=== PATIENT | male | born 1980 | race Caucasian/White ===

== ENCOUNTER 2016-12-24 16:13 | Inpatient (IN) | payer MEDICAID, OTHER ==
[~2016-12-24] VITALS: Ht 175.3 cm; Wt 109.8 kg
[~2016-12-24 16:13] MED LIST: ARIP5TAB9 PO; ASEN5TAB6 SL; OMEP20 PO; PROZ10 PO
[2016-12-24 18:43] VITALS: BP 113/60
[2016-12-24] MEDS ORDERED: ZOLPIDEM TARTRATE 10 MG TABLET PO PRN (18:45)
[2016-12-24] MEDS ORDERED: LORazepam 2 MG TABLET PO PRN (18:45)
[2016-12-24] MEDS ORDERED: HALOPERIDOL 5 MG TABLET PO PRN (18:45)
[2016-12-24] MEDS ORDERED: INFLUENZA VIRUS VACCINE QVS 2016-17 (3YR+)/PF 60 MCG/0.5 ML SYRINGE IM ONE (19:00)
[2016-12-24 19:20] VITALS: BP 119/84
[2016-12-24 19:46] VITALS: BP 119/84
[2016-12-24] MEDS ORDERED: QUET200T PO (19:56)
[2016-12-24] MEDS ORDERED: VALA500T38 PO (19:56)
[2016-12-24] MEDS ORDERED: CLON2 PO (19:56)
[2016-12-25] MEDS ORDERED: PNEUMOCOCCAL VACCINE POLYVALENT 0.5 ML VIAL [PPSV23] IM ONE (01:45)
[2016-12-25] MEDS ORDERED: -PHARMACY VACCINE NOTE- MISC ONE ×2 (01:45)
[2016-12-25 04:47] VITALS: BP 124/92
[2016-12-25] MEDS ORDERED: IBUPROFEN 600 MG TABLET PO PRN (08:00)
[2016-12-25] MEDS ORDERED: CloNIDine HCL 0.1 MG TABLET PO PRN (08:00)
[2016-12-25] MEDS ORDERED: ACETAMINOPHEN 325 MG TABLET PO PRN (08:00)
[2016-12-25] MEDS ORDERED: BENZOCAINE/MENTHOL LOZENGE MM PRN (08:00)
[2016-12-25] MEDS ORDERED: PETROLATUM,WHITE 71 GM JELLY TP PRN (08:00)
[2016-12-25] MEDS ORDERED: ONDANSETRON HCL 4 MG TABLET PO PRN (08:00)
[2016-12-25] MEDS ORDERED: ALBUTEROL SULFATE HFA 90 MCG/PUFF 8 GM INHALER IH PRN (08:00)
[2016-12-25] MEDS ORDERED: MAGNESIUM HYDROXIDE SUSPENSION 30 ML UDCUP PO PRN (08:00)
[2016-12-25] MEDS ORDERED: BACITRACIN 28.4 GM OINTMENT TP PRN (08:00)
[2016-12-25] MEDS ORDERED: LOPERAMIDE HCL 2 MG CAPSULE PO PRN (08:00)
[2016-12-25] MEDS ORDERED: MAG HYDROX/AL HYDROX/SIMETH ES 30 ML SUSPENSION UDCUP PO PRN (08:00)
[2016-12-25 08:35] LABS: BASOPHILS % (AUTO) 0.4 % (0.0-2.0); EOSINOPHILS % (AUTO) 4.4 % (1.0-6.0); HEMATOCRIT 42.9 % (41-53); LYMPHOCYTES % (AUTO) 24.9 % (22.0-44.0); MEAN CORPUSCULAR HEMOGLOBIN 29.1 pg (26.0-34.0); MEAN CORPUSCULAR HGB CONC 32.6 G/dL (31.0-37.0); MEAN CORPUSCULAR VOLUME 89 fL (80-100); MONOCYTES # (AUTO) 0.6 K/uL (0.1-1.0); MONOCYTES % (AUTO) 7.5 % (2.0-9.0); NEUTROPHILS % (AUTO) 62.8 % (40.0-70.0); PLATELET COUNT (AUTO) 321 K/uL (150-450); RED CELL DISTRIBUTION WIDTH 16.1 % (11.5-14.5)
[2016-12-25 08:49] LABS: ALANINE AMINOTRANSFERASE 45 U/L (12-78); ALBUMIN 3.4 g/dL (3.4-5.0); ANION GAP 9 mmol/L (8-16); ASPARTATE AMINOTRANSFERASE 24 U/L (15-37); BILIRUBIN,TOTAL 0.3 mg/dL (0.1-1.0); CALCIUM, TOTAL 8.4 mg/dL (8.8-10.5); CARBON DIOXIDE 24 mmol/L (22-29); CHLORIDE 106 mmol/L (98-107); CREATININE 0.79 mg/dL (0.60-1.30); GLOMERULAR FILTR. RATE CALC > 60 mL/min (>60); POTASSIUM 4.4 mmol/L (3.5-5.1); SODIUM SERUM 139 mmol/L (136-145); TOTAL PROTEIN, SERUM 6.8 g/dL (6.4-8.2); UREA NITROGEN, BLOOD 10 mg/dL (7-18)
[2016-12-25 16:09] VITALS: BP 101/66
[2016-12-25] MEDS ORDERED: QUEtiapine FUMARATE 200 MG TABLET PO SCH (21:00)
[2016-12-26 04:56] VITALS: BP 110/61
[2016-12-26 08:00] VITALS: BP 121/82
== END 2016-12-26 13:37 | disposition home or self-care (01) | DRG 750 ==
LOC: B2S 18:42 → EDSTATUS 18:45
PROVIDERS: ADMIT Psychiatry & Neurology Psychiatry; ATTEND Psychiatry & Neurology Psychiatry
DX: F25.9 Schizoaffective disorder, unspecified (principal); E66.9 Obesity, unspecified; F10.10 Alcohol abuse, uncomplicated; F12.90 Cannabis use, unspecified, uncomplicated; J45.909 Unspecified asthma, uncomplicated; F17.210 Nicotine dependence, cigarettes, uncomplicated; Z71.6 Tobacco abuse counseling; Z88.8 Allergy status to other drugs, medicaments and biological substances; Z68.35 Body mass index [BMI] 35.0-35.9, adult; Z28.21 Immunization not carried out because of patient refusal; Z79.899 Other long term (current) drug therapy; Z82.49 Family history of ischemic heart disease and other diseases of the circulatory system
CPT/HCPCS: 90471

== ENCOUNTER 2017-12-09 01:02 | Inpatient (IN) | payer MEDICAID ==
[~2017-12-09] VITALS: Ht 177.8 cm; Wt 117.7 kg
[~2017-12-09 01:02] MED LIST changes: -ARIP5TAB9 PO; -ASEN5TAB6 SL; -OMEP20 PO; -PROZ10 PO; +QUET200T PO
[2017-12-09] MEDS ORDERED: ZOLPIDEM TARTRATE 10 MG TABLET PO PRN (04:15)
[2017-12-09 04:47] VITALS: BP 121/86
[2017-12-09] MEDS ORDERED: INFLUENZA VIRUS VACCINE QVS 2017-18 (3YR+)/PF 60 MCG/0.5 ML SYRINGE IM ONE (05:00)
[2017-12-09] MEDS ORDERED: -PHARMACY VACCINE NOTE- MISC ONE (05:00)
[2017-12-09] MEDS ORDERED: PNEUMOCOCCAL VACCINE POLYVALENT 0.5 ML VIAL [PPSV23] IM ONE (05:00)
[2017-12-09 08:24] VITALS: BP 128/88
[2017-12-09] MEDS ORDERED: POTASSIUM CHLORIDE 20 MEQ ER TABLET PO ONE (09:00)
[2017-12-09] MEDS: SERTRALINE HCL 50 MG TABLET PO SCH (12:49)
[2017-12-09] MEDS: QUEtiapine FUMARATE 100 MG TABLET PO SCH ×2 (12:49→16:12)
[2017-12-09] MEDS: HALOPERIDOL 5 MG TABLET PO PRN (13:31)
[2017-12-09] MEDS: LORazepam 2 MG TABLET PO PRN (16:12)
[2017-12-10 07:14] VITALS: BP 118/88
[2017-12-10] MEDS: SERTRALINE HCL 50 MG TABLET PO SCH (08:02)
[2017-12-10] MEDS: QUEtiapine FUMARATE 100 MG TABLET PO SCH ×2 (08:02→16:00)
[2017-12-10] MEDS: LORazepam 2 MG TABLET PO PRN (16:00)
[2017-12-10 16:31] VITALS: BP 119/97
[2017-12-11 04:06] VITALS: BP 116/68
[2017-12-11] MEDS: QUEtiapine FUMARATE 100 MG TABLET PO SCH (08:09)
[2017-12-11 08:12] VITALS: BP 134/72
[2017-12-11] MEDS ORDERED: SERTRALINE HCL 50 MG TABLET PO SCH (09:00)
[2017-12-11] MEDS: LORazepam 2 MG TABLET PO PRN (13:19)
[2017-12-11] MEDS: HALOPERIDOL 5 MG TABLET PO PRN (13:19)
[2017-12-11] MEDS: QUEtiapine FUMARATE 300 MG TABLET PO SCH (16:33)
[2017-12-12 02:00] VITALS: BP 114/72
[2017-12-12] MEDS: HALOPERIDOL 5 MG TABLET PO PRN (05:32)
[2017-12-12] MEDS: LORazepam 2 MG TABLET PO PRN (05:32)
[2017-12-12] MEDS: QUEtiapine FUMARATE 300 MG TABLET PO SCH (07:51)
[2017-12-12 08:25] LABS: BASOPHILS % (AUTO) 0.7 % (0.0-2.0); EOSINOPHILS % (AUTO) 2.9 % (1.0-6.0); HEMATOCRIT 45.8 % (41-53); HEMOGLOBIN 15.6 g/dL (13.5-17.5); LYMPHOCYTES % (AUTO) 23.2 % (22.0-44.0); MEAN CORPUSCULAR HGB CONC 34.1 G/dL (31.0-37.0); MEAN CORPUSCULAR VOLUME 94 fL (80-100); MONOCYTES # (AUTO) 0.6 K/uL (0.1-1.0); MONOCYTES % (AUTO) 7.4 % (2.0-9.0); NEUTROPHILS # (AUTO) 5.7 K/uL (1.8-7.7); NEUTROPHILS % (AUTO) 65.8 % (40.0-70.0); PLATELET COUNT (AUTO) 289 K/uL (150-450); RED BLOOD CELL COUNT(AUTO) 4.88 MIL/uL (4.50-5.90); RED CELL DISTRIBUTION WIDTH 15.1 % (11.5-14.5)
[2017-12-12 08:30] LABS: HEMOGLOBIN A1C 5.2 % (4.5-6.2)
[2017-12-12 08:45] LABS: ALANINE AMINOTRANSFERASE 56 U/L (12-78); ALBUMIN 3.5 g/dL (3.4-5.0); ALKALINE PHOSPHATASE 74 U/L (46-116); ANION GAP 10 mmol/L (8-16); ASPARTATE AMINOTRANSFERASE 33 U/L (15-37); BILIRUBIN,TOTAL 0.3 mg/dL (0.1-1.0); CALCIUM, TOTAL 8.8 mg/dL (8.8-10.5); CARBON DIOXIDE 26 mmol/L (22-29); CHLORIDE 103 mmol/L (98-107); CHOL/HDL RATIO 4.1 (4.2-7.3); CHOLESTEROL 231 mg/dL (131-200); CREATININE 0.74 mg/dL (0.60-1.30); FREE T4 (FREE THYROXINE) 0.77 ng/dL (0.76-1.46); GLOMERULAR FILTR. RATE CALC > 60 mL/min (>60); GLUCOSE,RANDOM 78 mg/dL (70-110); HDL CHOLESTEROL 56 mg/dL (40-60); LDL CHOL (CALC.) 141 mg/dL (0-130); POTASSIUM 3.8 mmol/L (3.5-5.1); SODIUM SERUM 139 mmol/L (136-145); TOTAL PROTEIN, SERUM 7.2 g/dL (6.4-8.2); TRIGLYCERIDES 169 mg/dL (15-150); UREA NITROGEN, BLOOD 13 mg/dL (7-18)
[2017-12-12] MEDS ORDERED: SERTRALINE HCL 50 MG TABLET PO SCH (09:00)
[2017-12-12] MEDS ORDERED: QUET300T2 PO (13:13)
[2017-12-12] MEDS ORDERED: SERT100T12 PO (13:13)
== END 2017-12-12 14:00 | disposition home or self-care (01) | DRG 750 ==
LOC: EDSTATUS 04:02 → B2S 04:30
PROVIDERS: ADMIT Psychiatry & Neurology Psychiatry; ATTEND Psychiatry & Neurology Psychiatry
DX: F25.0 Schizoaffective disorder, bipolar type (principal); F29 Unspecified psychosis not due to a substance or known physiological condition; R45.851 Suicidal ideations; F60.3 Borderline personality disorder; F15.90 Other stimulant use, unspecified, uncomplicated; F41.9 Anxiety disorder, unspecified; Z59.0 Homelessness; Z91.19 Patient's noncompliance with other medical treatment and regimen; Z91.5 Personal history of self-harm; Z28.21 Immunization not carried out because of patient refusal; Z88.8 Allergy status to other drugs, medicaments and biological substances
CPT/HCPCS: 83036; 84439; 99285